=== PATIENT | male | born 1985 | race Caucasian/White ===

== ENCOUNTER 2020-02-26 11:45 | Emergency (ER) | payer BC, SELFPAY ==
--- NOTE | 2020-02-26 11:48 | ED.GENADUL_ITS ---
Discharge Plan Disposition Patient Disposition: HOME Condition: Stable Discharge Details Clinical Impression: Laceration Primary Care Provider: Wilberto Lobato ED Provider: Maria Alejandra Alves Home Meds and New Rx's Prescriptions: New cephalexin [Keflex] 500 mg capsule 500 mg PO QID Qty: 39 RF: 0 Discharge Instructions Instructions: Laceration (ED) Additional Instructions: Please return immediately to the emergency department if you develop any new or worsening symptoms, if your condition does not improve as expected, or if you become otherwise concerned. It is extremely important that you call soon as possible to make an appointment to be seen in follow-up for this visit by your primary care doctor. You will need to have your sutures removed in 10 days as we discussed. Referrals: Wilberto Lobato [Primary Care Provider] - Discharge Data Discharge Date/Time-TO BE ENTERED AT DEPARTURE: 02/26/20 14:05 Medical Decision Making Manuel Massey is a 34-year-old man without reported history of major medical problems who presented to the emergency department with laceration to the dorsal aspect of the right hand over the first MCP. On exam patient is well and nontoxic-appearing. Extensor function of the first digit is intact, there is no neurovascular compromise. 1.5 cm curvilinear superficial laceration over the right first MCP with small amount of black debris, patient thinks may be related to black rubber glove he was wearing at the time of the injury. Concern for contaminated laceration. Doubt bony injury. Plan for x-ray, irrigation repair. X-ray negative. Wound irrigated copiously under pressure, small amount of debridement was performed due to debris, and wound was repaired. Plan for prophylactic antibiotics given contamination. I had a lengthy discussion with Patient regarding return to emergency department precautions, home care, and importance of outpatient follow-up. Pt verbalizes understanding of the plan and is amenable. Patient discharged to home with clear plan for outpatient follow- up. All questions were answered. Disposition decision was made weighing the risks and benefits of hospitalization versus outpatient treatment, the risk for further decompensation, and the patient's wishes. Medical Records Medical records reviewed: Yes I reviewed the patient's medical records. Imaging Data Radiologic Study: Attestation: I personally reviewed and interpreted this imaging study as follows: Radiologist's impression: EXAM: XR HAND RT COMPLETE CLINICAL HISTORY: laceration over 1st MCP joint. TECHNIQUE: 2D digital imaging was performed. COMPARISON: No exams were available for comparison FINDINGS: BONES: No acute fracture is present. No bony destructive lesion is seen. JOINTS: No dislocation present. SOFT TISSUE: There is a skin defect at the lateral aspect of the 1st MCP joint consistent with the patient's laceration. No radiopaque foreign bodies are seen in the soft tissues. IMPRESSION: 1. No acute fracture, dislocation or radiopaque foreign body. 2. Soft tissue laceration lateral to the 1st MCP joint. HPI General Mode of arrival: ambulatory . Date/Time Provider Initiated Documentation: 02/26/20 11:47 . Limitations to Documentation: no limitations . Information obtained by: patient, RN notes reviewed and old records reviewed . HPI Narrative: Manuel Massey is a 34-year-old man without reported history of medical problems presenting to emergency department with laceration to hand. 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 He denies any other injury. He denies pain other than at the site of the cut. He denies weakness or numbness. Patient denies any other symptoms, states that he was previously in his usual state of health. Patient reports last tetanus was 2 years ago. Related Data Home Medications Medication Instructions Recorded Confirmed cephalexin [Keflex] 500 mg PO QID #39 cap 02/26/20 Previous Rx's Medication Instructions Recorded cephalexin [Keflex] 500 mg PO QID #39 cap 02/26/20 Allergies Allergy/AdvReac Type Severity Reaction Status Date / Time No Known Drug Allergies Allergy Unverified 02/26/20 11:55 Review of Systems Narrative: Constitutional: denies fevers Eyes: denies eye pain ENT: denies ear pain, dental pain, sore throat Cardiovascular: denies chest pain Respiratory: denies SOB, cough GI: denies abdominal pain, vomiting : denies flank pain MSK: denies back pain, neck pain, arthralgias Skin: Reports skin wound Neuro: denies headaches, numbness, weakness PFSH Social History Smoking/Tobacco Use Status: Current every day Tobacco Type: cigars Smoking risk assessment performed?: Yes Alcohol Intake: former Drug use: Never Substance use type: does not use Do you feel safe at home: Yes Do you feel safe in your relationship?: Yes Exam Narrative Exam Narrative: Constitutional: well and [id number], pleasant, conversing normally HENT: head atraumatic/normocephalic/normal inspection, mucous membranes moist Eyes: conjunctiva normal, sclera normal, pupils 3mm b/l Neck: no stridor, normal ROM, trachea midline Resp: normal work of breathing, speaking in full sentences Cardio: normal rate, normal rhythm, radial pulse intact Skin: warm, dry, normal color, no rash Neuro: alert, not altered, grossly non-focal, normal tone Ext: 1.5 cm curvilinear laceration dorsal aspect right hand over first MCP joint with small amount of black debris, distal sensation of the first digit intact (scar distal to laceration from prior wound, patient reports mild chronic numbness/tingling to distal right first digit that is unchanged since this injury), full flexion/extension intact, brisk cap refill, no other abnormality of the right hand Psych: normal mood, normal affect, normal behavior Procedures Laceration Laceration 1: Site: hand Side (If applicable): right Size (cm): 1.5 Description: linear and contaminated Depth: simple, single layer Local Anesthetic: Lidocaine 1% Amount of anesthesia used (mL): 4 Pre-repair: wound explored, irrigated extensively and deep structures intact Skin layer closed with: nylon Size (cm): 4-0 Number of sutures: 3 Technique: simple, interrupted
[2020-02-26 11:50] VITALS: BP 108/76; PULSE 87; RESP 18; TEMP 37.2; O2SAT 98
--- NOTE | 2020-02-26 12:11 | DI.RAD_ITS ---
EXAM: XR HAND RT COMPLETE CLINICAL HISTORY: laceration over 1st MCP joint. TECHNIQUE: 2D digital imaging was performed. COMPARISON: No exams were available for comparison FINDINGS: BONES: No acute fracture is present. No bony destructive lesion is seen. JOINTS: No dislocation present. SOFT TISSUE: There is a skin defect at the lateral aspect of the 1st MCP joint consistent with the pa tient's laceration. No radiopaque foreign bodies are seen in the soft tissues. IMPRESSION: 1. No acute fracture, dislocation or radiopaque foreign body. 2. Soft tissue laceration lateral to the 1st MCP joint. DATA REPOSITORY: RADIATION DOSE DELIVERED:
[2020-02-26] MEDS: Cephalexin 500 MG CAP PO (13:44)
== END 2020-02-26 14:05 | disposition home or self-care (01) ==
PROVIDERS: Emergency Provider Student in an Organized Health Care Education/Training Program; PCP Family Medicine
DX: S61.011A Laceration without foreign body of right thumb without damage to nail, initial encounter (principal); W31.1XXA Contact with metalworking machines, initial encounter
CPT/HCPCS: 12001; 73130

== ENCOUNTER 2020-03-08 13:50 | Emergency (ER) | payer BC, SELFPAY ==
[2020-03-08 13:55] VITALS: BP 126/73; PULSE 66; RESP 16; TEMP 36.3; O2SAT 98
--- NOTE | 2020-03-08 14:49 | NUR.NOTE ---
Nursing Note: Referral to hand specialist @ [facility] Dr. Moscoso, given to Care Management. Tegan Barroso
--- NOTE | 2020-03-08 15:01 | W.ED.GENAD ---
Discharge Plan Disposition Patient Disposition: HOME Condition: Stable Discharge Details Clinical Impression: Visit for suture removal, Injury of thumb, right Primary Care Provider: Wilberto Lobato ED Provider: Alan Decker Home Meds and New Rx's Prescriptions: No Action No Known Home Meds RF: 0 Discharge Instructions Additional Instructions: Sutures were removed without any difficulty. After evaluating you I am concerned of the potential for a extensor tendon injury. Your range of motion and her strength does not appear to be equal to your left thumb. I spoke with our local orthopedic team and they have recommended that you follow-up with a hand specialist in [facility]. The hand specialist is Dr. Tristan, his office number is [phone]. I recommend you contact his office on Tuesday for prompt outpatient reevaluation. I do recommend wearing the splint until you are reevaluated for protective measures. I have also placed you on our care management list to help expedite outpatient care through the hand specialist. Please watch for new or worsening symptoms and return to the ER for any concerns. Referrals: Shahid Tristan [ [facility] STAFF PHYSICIAN] - Discharge Data Discharge Date/Time-TO BE ENTERED AT DEPARTURE: 03/08/20 15:10 Medical Decision Making 34-year-old gentleman presents for suture removal. Wound appears well, no signs of infection. Sutures removed without difficulty. Given his decreased strength and range of motion, I am concerned of a tendon injury. I placed a call to Dr. Green, orthopedics. He states that the injury is over 10 days old, on his dominant hand, and the patient is likely best served being evaluated sometime next week by a hand specialist. He recommends Dr. Tristan. In the meantime I will place the patient in a AlumaFoam thumb splint. I was able to give him the information for the hand specialist, and place him on the care management list. Care management will help expedite outpatient care and I have recommended that the patient call hand specialist first thing Tuesday for prompt outpatient reevaluation. We discussed the importance of proper follow-up given my concern for potential tendon injury on his dominant thumb. Patient is agreeable to this plan and has no additional questions or concerns. Medical Records Medical records reviewed: Yes I reviewed the patient's medical records. HPI General Mode of arrival: ambulatory. Date/Time Provider Initiated Documentation: 03/08/20 14:04. Limitations to Documentation: no limitations. Information obtained by: patient. HPI Narrative: This is a 34-year-old gentleman, denies significant past medical history, presenting for suture removal. He is right-hand dominant. He was seen in the ER on 02-26-20, laceration repaired. He reports that he is otherwise doing well, denies fever, new numbness, tingling. Does have a previous injury of the thumb and does have some altered sensation. Denies any drainage, redness, discomfort. Sutures are still intact. He does question if there is a new weakness in that left thumb since his most recent injury. He did not notice this at first. Now he believes that he is unable to extend his thumb completely and feels as though it is more weak in general. Related Data Home Medications Medication Instructions Recorded Confirmed Unknown [No Known Home Meds] 03/08/20 03/08/20 Allergies Allergy/AdvReac Type Severity Reaction Status Date / Time No Known Drug Allergies Allergy Unverified 03/08/20 13:58 General Stated Complaint: SutureRem KIESHA: 5 Review of Systems Constitutional Constitutional: Denies fever(s) and Reports weakness Musculoskeletal Musculoskeletal: Denies arthralgias, Denies joint swelling, Reports numbness (Baseline), Denies stiffness and Reports tingling Integumentary/Breasts Skin/Breast: Denies erythema Neurologic Neurologic: Reports numbness, Reports tingling and Reports weakness [facility] Social History Smoking/Tobacco Use Status: Current every day Tobacco Type: cigars Smoking risk assessment performed?: Yes Alcohol Intake: former Drug use: Never Substance use type: does not use Do you feel safe at home: Yes Do you feel safe in your relationship?: Yes Exam Const General: cooperative, healthy appearing, comfortable and no acute distress Orientation: alert and awake [facility] Head: normal to inspection, normocephalic and atraumatic Eyes General: appearance normal, both eyes and all related structures Conjunctivae: conjunctivae normal Sclera: sclerae normal Neck Neck: normal visual inspection, trachea midline and supple Resp Effort & Inspection: normal respiratory effort and able to speak in complete sentences Cardio Rate: regular rate Rhythm: regular rhythm Skin General skin exam: no rashes or lesions noted Neuro General: patient alert, patient awake and moves all extremities Cognition: normal cognition Speech: speech normal Gait: normal gait Extrem Right upper extremity: normal capillary refill Other: Right hand examination, specifically right thumb. There is a well-healing laceration proximally 1.5 cm over the first MCP joint. 3 sutures are intact. There is no warmth, erythema, drainage, tenderness. In comparison to his left, his nondominant thumb, he does have only 4 out of 5 strength compared to 5 out of 5 strength with extension of the thumb. He is able to partially extend his thumb in both his MCP and PIP joint but he is not able to hyperextend these joints like he does on his nondominant hand. Normal capillary refill. He is able to feel me touching his thumb although reports that he does have his baseline altered sensation from previous injury. Psych Appearance: grossly normal Mental Status: mental status grossly normal Course Vital Signs Vital signs: Vital Signs Temperature 36.3 C L 03/08/20 13:55 Pulse 66 03/08/20 13:55 Respiratory Rate 16 03/08/20 13:55 Blood Pressure 126/73 03/08/20 13:55 Pulse Oximetry 98 03/08/20 13:55 Temperature 36.3 C L 03/08/20 13:55 Temperature Source Skin 03/08/20 13:55 Pulse 66 03/08/20 13:55 Respiratory Rate 16 03/08/20 13:55 Respiratory Effort Non-Labored 03/08/20 13:55 Blood Pressure 126/73 03/08/20 13:55 Blood Pressure Position Sitting 03/08/20 13:55 Pulse Oximetry 98 03/08/20 13:55 Oxygen Delivery Method Room Air 03/08/20 13:55 Oxygen Flow Rate 0 03/08/20 13:55 Pain Level 1 03/08/20 13:55
[2020-03-08 15:06] VITALS: BP 126/73; PULSE 66; RESP 16; TEMP 36.4; O2SAT 98
== END 2020-03-08 15:10 | disposition home or self-care (01) ==
PROVIDERS: Emergency Provider Physician Assistant; PCP Family Medicine
DX: S61.012D Laceration without foreign body of left thumb without damage to nail, subsequent encounter (principal); X58.XXXD Exposure to other specified factors, subsequent encounter

== ENCOUNTER 2021-08-17 11:14 | Emergency (ER) | payer BC, SELFPAY ==
[2021-08-17 11:16] VITALS: BP 123/83; PULSE 74; RESP 14; TEMP 37; O2SAT 97
--- NOTE | 2021-08-17 11:45 | W.ED.GENAD ---
Discharge Plan Disposition Patient Disposition: HOME Condition: Stable Discharge Details Clinical Impression: Foreign body (FB) in soft tissue Primary Care Provider: Wilberto Lobato ED Provider: Verito Vázquez Home Meds and New Rx's Prescriptions: New cephalexin 500 mg capsule 500 mg PO BID 3 Days Qty: 6 0RF Rx Instructions: Take 1 capsule twice daily for the next 3 days. Take with food. Discharge Instructions Instructions: Laceration (ED), Soft Tissue Foreign Body (ED) Additional Instructions: A small piece of metal was removed from the right medial knee. Please have sutures removed in the next 5 to 7 days. Return sooner for any signs of infection. Please take the antibiotics as directed. Keep clean and dry no soaking or swimming. Do not do any deep knee bend. Please take Tylenol or Ibuprofen with food every 4-6 hours as needed for pain and swelling. You may have the sutures removed here or urgent care. Referrals: Wilberto Lobato [Primary Care Provider] - Return if symptoms worsen Discharge Data Discharge Date/Time-TO BE ENTERED AT DEPARTURE: 08/17/21 13:51 Medical Decision Making 36-year-old male presents to the ER with chief complaint of possible foreign body to his right inner knee. He reports approximately an hour ago he was hammering a nail when a piece broke off and impaled into his right inner knee. This time x-ray of right knee ordered to rule out metal foreign body. Tetanus vaccination. I did discuss risks of inability to retrieve foreign body, infection,and benefits and a timeout was performed prior to retrieval of foreign body to the soft tissues. Patient verbalized understanding and is in agreement with the procedure. Area was cleaned using sterile aseptic technique with Betadine. The skin was anesthetized with 1% lidocaine with epinephrine. A Small incision was made with a 15 blade just over the foreign body. The foreign body was retrieved with hemostat, ultrasound guidance was also at bedside for assistance with retrieval. Patient tolerated with little difficulty please see procedure note. Small piece of metal foreign body was retrieved. The incision was repaired with 3 simple interrupted sutures, four-point 0 Ethilon. I did discuss suture removal and home care with patient who verbalized understanding. Circulation sensation and movement was intact postprocedure. Dressing was applied by staffing recruiter. This text was generated using [employer] system, please disregard any oddities of phrase or misspellings. Imaging Data Radiologic Study: Imaging: X-Ray Radiologist's impression: FINDINGS: BONES: No acute fracture is present. No bony destructive lesion is seen. JOINTS: The knee is normally aligned. No joint effusion is seen. SOFT TISSUE: Metallic fragment in the soft tissues of the posteromedial knee at the level of the medial femoral condyle .? Venous varicosities are noted. IMPRESSION: Metallic foreign body in the posteromedial soft tissues of the right knee. Lab Data Labs: FINDINGS: BONES: No acute fracture is present. No bony destructive lesion is seen. JOINTS: The knee is normally aligned. No joint effusion is seen. SOFT TISSUE: Metallic fragment in the soft tissues of the posteromedial knee at the level of the medial femoral condyle .? Venous varicosities are noted. IMPRESSION: Metallic foreign body in the posteromedial soft tissues of the right knee. HPI General Mode of arrival: ambulatory. Date/Time Provider Initiated Documentation: 08/17/21 11:40. Limitations to Documentation: no limitations. Information obtained by: patient, RN notes reviewed and old records reviewed. HPI Narrative: 36-year-old male presents to the ER with chief complaint of possible foreign body to his right inner knee. He reports approximately an hour ago he was hammering a nail when a piece broke off and impaled into his right inner knee. He denies any drugs or alcohol. Alert and oriented no other complaints or associated symptoms. He reports some numbness and tingling distally, CMS is intact to his distal lower extremity. He is unsure of his last tetanus vaccination. Related Data Home Medications Medication Instructions Recorded Confirmed cephalexin 500 mg capsule 500 mg PO BID 3 days #6 caps 08/17/21 Previous Rx's Medication Instructions Recorded cephalexin 500 mg capsule 500 mg PO BID 3 days #6 caps 08/17/21 Allergies Allergy/AdvReac Type Severity Reaction Status Date / Time No Known Drug Allergies Allergy Unverified 08/17/21 11:21 General Stated Complaint: Laceration KIESHA: 3 Review of Systems All systems reviewed & are unremarkable except as noted in HPI and below Musculoskeletal Musculoskeletal: Reports as per HPI and Reports numbness Integumentary/Breasts Skin/Breast: Reports as per HPI and Reports wounds (Right medial posterior knee) Neurologic Neurologic: Reports numbness PFSH All Active Problems (Updated 08/17/21 @ 13:26 by Verito Vázquez) Foreign body (FB) in soft tissue (Acute) Social History Smoking/Tobacco Use Status: Current every day Tobacco Type: cigars Smoking risk assessment performed?: Yes Alcohol Intake: former Drug use: Never Substance use type: does not use Do you feel safe at home: Yes Do you feel safe in your relationship?: Yes Exam Extrem General: normal to inspection Right upper extremity: normal to inspection Left upper extremity: normal to inspection Right lower extremity: normal capillary refill and knee Details: penetrating wound (See diagram) knee medial Details: a single wound, distal motor nerve function intact, distal sensation intact and distal tendon function intact; no crepitus Knee images: 1. Small puncture wound approximately 0.5 cm, small ooze noted, no active bleeding at this time. Course Vital Signs Vital signs: Vital Signs Temperature 37 C 08/17/21 11:16 Pulse 74 08/17/21 11:16 Respiratory Rate 14 08/17/21 11:16 Blood Pressure 123/83 08/17/21 11:16 Pulse Oximetry 97 08/17/21 11:16 Temperature 37 C 08/17/21 11:16 Temperature Source Skin 08/17/21 11:16 Pulse 74 08/17/21 11:16 Respiratory Rate 14 08/17/21 11:16 Blood Pressure 123/83 08/17/21 11:16 Blood Pressure Position Sitting 08/17/21 11:16 Pulse Oximetry 97 08/17/21 11:16 Oxygen Delivery Method Room Air 08/17/21 11:16 Oxygen Flow Rate 0 08/17/21 11:16 Pain Level 1 08/17/21 11:26 Procedures Foreign Body Removal Time Out Performed: yes (Discussed risks and benefits and procedure with patient who verbalizes understanding and is in agreement.) Site: right Description of foreign body: other (Metal piece of hammer) Sedation/Analgesia: none Technique: removal with forceps (A small approximate 0.5 cm piece of metal was removed.), incision made to facilitate removal (Incision repaired with 3 simple interrupted sutures.) and bedside ultrasound guidance Confirmed by:: direct visualization, radiograph and palpation Complications: none Post-procedure exam: awake, alert and normal HR Neurovascular: normal distal pulse, normal capillary fill, distal light touch sensation intact, distal motor function normal and no signs of compartment syndrome
--- NOTE | 2021-08-17 12:08 | DI.RAD_ITS ---
Exam(s) XR KNEE RT 3V AP,LAT,JOSEFA EXAM: XR KNEE RT 3V AP,LAT,JOSEFA CLINICAL HISTORY: R/O Foreign Body, metal. TECHNIQUE: 2D digital imaging was performed. Three views. COMPARISON: No exams were available for comparison FINDINGS: BONES: No acute fracture is present. No bony destructive lesion is seen. JOINTS: The knee is normally aligned. No joint effusion is seen. SOFT TISSUE: Metallic fragment in the soft tissues of the posteromedial knee at the level of the medi al femoral condyle . Venous varicosities are noted. IMPRESSION: Metallic foreign body in the posteromedial soft tissues of the right knee. DATA REPOSITORY: RADIATION DOSE DELIVERED:
[2021-08-17] MEDS: Cephalexin 500 MG CAP, 2 CAPS/BTL PO (13:52)
[2021-08-17] MEDS: Cephalexin 500 MG CAP PO (13:52)
== END 2021-08-17 13:51 | disposition home or self-care (01) ==
PROVIDERS: Emergency Provider Registered Nurse Emergency; PCP Family Medicine
DX: S80.251A Superficial foreign body, right knee, initial encounter (principal); W45.8XXA Other foreign body or object entering through skin, initial encounter
CPT/HCPCS: 10120; 73562; 90471; 99284; 99283

== ENCOUNTER 2021-08-24 09:57 | Emergency (ER) | payer BC, SELFPAY ==
[2021-08-24 09:59] VITALS: BP 130/79; PULSE 76; RESP 16; TEMP 35.5; O2SAT 96
--- NOTE | 2021-08-24 10:28 | ED.GENADUL_ITS ---
Discharge Plan Disposition Patient Disposition: HOME Condition: Stable Discharge Details Clinical Impression: Visit for suture removal Primary Care Provider: Wilberto Lobato ED Provider: Sarah Mcgovern Home Meds and New Rx's Prescriptions: No Action No Known Home Meds Discharge Instructions Additional Instructions: Follow-up as needed Return with redness, fever, worsening pain Discharge Data Discharge Date/Time-TO BE ENTERED AT DEPARTURE: 08/24/21 10:53 Medical Decision Making 3 sutures removed by me without incident Reviewed patient procedure note and previous discharge summary Discharged home, appears well Medical Records Medical records reviewed: Yes I reviewed the patient's medical records. HPI General Date/Time Provider Initiated Documentation: 08/24/21 10:18 . HPI Narrative: This 36-year-old male presents for suture removal right inner thigh where he had a metal splinter removed. He states that approximately 7 days ago. He denies any new pain, sensation change, redness, or drainage from the site and is overall feeling well Related Data Home Medications Medication Instructions Recorded Confirmed Unknown [No Known Home Meds] 08/24/21 08/24/21 Allergies Allergy/AdvReac Type Severity Reaction Status Date / Time No Known Drug Allergies Allergy Unverified 08/24/21 10:02 General Stated Complaint: SutureRem KIESHA: 5 Review of Systems Narrative: Review of systems obtained x3 and negative aside from medication HPI PFSH All Active Problems (Updated 08/24/21 @ 10:31 by SAUL Zhang) Foreign body (FB) in soft tissue (Acute) Visit for suture removal (Acute) Social History Smoking/Tobacco Use Status: Current every day Tobacco Type: cigars Smoking risk assessment performed?: Yes Alcohol Intake: former Drug use: Never Substance use type: does not use Do you feel safe at home: Yes Do you feel safe in your relationship?: Yes Exam Const General: cooperative, comfortable and no acute distress Extrem Other: Right inner thigh with well-healing and approximated laceration without surrounding erythema or wound dehiscence Course Vital Signs Vital signs: Vital Signs Temperature 35.5 C L 08/24/21 09:59 Pulse 76 08/24/21 09:59 Respiratory Rate 16 08/24/21 09:59 Blood Pressure 130/79 08/24/21 09:59 Pulse Oximetry 96 08/24/21 09:59 Temperature 35.5 C L 08/24/21 09:59 Temperature Source Temporal Artery Scan 08/24/21 09:59 Pulse 76 08/24/21 09:59 Respiratory Rate 16 08/24/21 09:59 Respiratory Effort Non-Labored 08/24/21 10:02 Blood Pressure 130/79 08/24/21 09:59 Blood Pressure Position Sitting 08/24/21 09:59 Pulse Oximetry 96 08/24/21 09:59 Oxygen Delivery Method Room Air 08/24/21 09:59 Oxygen Flow Rate 0 08/24/21 09:59
== END 2021-08-24 10:53 | disposition home or self-care (01) ==
PROVIDERS: Emergency Provider Physician Assistant; PCP Family Medicine
DX: S71.12 Laceration with foreign body of thigh (principal); W45.8XXD Other foreign body or object entering through skin, subsequent encounter; Z48.02 Encounter for removal of sutures

== ENCOUNTER 2022-05-20 18:27 | Outpatient (REF) | payer BC, SELFPAY ==
[2022-05-20 20:28] LABS: Abs Immature Grans 0.02 10^3/uL (0.0-0.06); Absolute Basophil Count 0.09 10^3/uL (0.0-0.2); Absolute Eosinophil Count 0.39 10^3/uL (0.0-0.7); Absolute Lymphocyte Count 2.33 10^3/uL (1.2-3.4); Absolute Monocyte Count 0.56 10^3/uL (0.1-0.8); Absolute Neutrophil Count 4.04 10^3/uL (1.2-6.7); Basophils % 1.2; Eosinophils % 5.2; HCT 45.7 % (40.0-50.0); Immature Grans % 0.3; Lymphocytes % 31.4; MCH 30.8 pg (27.0-33.0); MCV 88 fL (80-95); MPV 10.9 fL (8.0-11.0); Monocytes % 7.5; Neutrophils % 54.4; Platelet Count 274 10^3/uL (130-400); RDW 12.2 % (11.8-14.1); RDW-SD 39.1 fL; WBC 7.43 10^3/uL (4.4-10.8)
[2022-05-20 20:43] LABS: ALT 42 U/L (16-63); AST 34 U/L (15-37); Albumin 4.3 g/dL (3.4-5.0); Alkaline Phosphatase 184 U/L (46-116); Anion Gap 8.5 mmol/L (3-11); BUN 12 mg/dL (7-18); Bilirubin, Total 0.3 mg/dL (0.2-1.0); CO2 27.5 mmol/L (21.0-32.0); CREATININE 1.1 mg/dL (0.70-1.30); Calcium 9.1 mg/dL (8.5-10.1); Chloride 105 mmol/L (98-107); Estimated GFR 87.57 (mL/min/1.73m2); Glucose 87 mg/dL (74-106); Sodium 141 mmol/L (136-145); Total Protein 8.2 g/dL (6.4-8.2)
== END 2022-05-20 18:28 | disposition home or self-care (01) ==
LOC: NCHCN 18:27
PROVIDERS: PCP Family Medicine; Visit Provider Family Medicine
DX: R06.09 Other forms of dyspnea (principal)
CPT/HCPCS: 80053; 85025

== ENCOUNTER 2022-05-21 09:57 | Outpatient (CLI) | payer BC, SELFPAY ==
--- NOTE | 2022-05-21 | DI.RAD_ITS ---
Exam(s) XR CHEST 2V PA LATERAL EXAM: XR CHEST 2V PA LATERAL CLINICAL HISTORY: DYSPNEA R06.00 TECHNIQUE: 2D digital imaging was performed of the chest. Two images were obtained. PA and lateral views were obtained. COMPARISON: No exams were available for comparison FINDINGS: MEDIASTINUM: Normal. HEART: Normal. PULMONARY VASCULATURE: Normal. LUNGS: Clear. PLEURAL SPACE: No pleural effusion or pneumothorax. BONE:Within normal limits for the patient's age. OTHER FINDINGS:Normal. IMPRESSION: No acute pulmonary findings. DATA REPOSITORY: RADIATION DOSE DELIVERED:
== END 2022-05-21 10:17 ==
LOC: DI 09:57
PROVIDERS: PCP Family Medicine; Visit Provider Family Medicine
DX: R06.00 Dyspnea, unspecified (principal)
CPT/HCPCS: 71046

== ENCOUNTER 2022-05-25 11:21 | Outpatient (CLI) | payer BC, SELFPAY ==
[2022-05-25] MEDS: Albuterol HFA 18 GM 200 PUFF INH IH (14:39)
[2022-05-25] MEDS: Inhaler, Assist Device 1 EACH MC (14:39)
--- NOTE | 2022-06-02 13:22 | W.PFT ---
Date of service: 05/25/22 Time of Service: 13:04 Pulmonary Function Test Result Requesting Provider Awais Dawkins Indications: Dyspnea Interpretation Spirometry: No airflow limitation. No bronchodilator response. Lung Volumes: Normal lung volumes Diffusion Capacity: Normal diffusion Airway Pressure: Normal airways resistance Impression Normal pulmonary function testing Clinical Correlation therefore is recommended.
== END 2022-05-25 11:22 | disposition home or self-care (01) ==
PROVIDERS: PCP Family Medicine; Visit Provider Family Medicine
DX: R06.00 Dyspnea, unspecified (principal)
CPT/HCPCS: 94060; 94726; 94729

== ENCOUNTER 2022-05-28 18:04 | Emergency (ER) | payer BC, SELFPAY ==
[2022-05-28 18:08] VITALS: BP 130/80; PULSE 70; RESP 16; TEMP 36.4; O2SAT 99
--- NOTE | 2022-05-28 18:22 | W.ED.GENAD ---
Discharge Plan Disposition Patient Disposition: Home Condition: Stable Discharge Details Clinical Impression: Pulmonary air trapping Primary Care Provider: Awais Dawkins ED Provider: Charlene Gooden Home Meds and New Rx's Prescriptions: New Inhaler, Assist Devices [Pocket Chamber] 1 ea miscellaneous DIRECTED Qty: 1 0RF albuterol sulfate 90 mcg/actuation HFA aerosol inhaler 2 puff inhalation Q4H PRNQty: 8.5 0RF Discharge Instructions Instructions: Reactive Airways Disease (ED) Referrals: Awais Dawkins MD [Primary Care Provider] - Lexus Lewis MD [[facility] STAFF PHYSICIAN] - Discharge Data Discharge Date/Time-TO BE ENTERED AT DEPARTURE: 05/28/22 21:41 <Yakov Alves MD - Last Filed: 06/06/22 22:16> Note: I did not evaluate this patient or participate in the care of this patient. The treating provider, DERRICK Gooden, did not request consultation or my involvement in care. HPI <Charlene Gooden NP - Last Filed: 06/01/22 17:58> General Mode of arrival: ambulatory. Date/Time Provider Initiated Documentation: 05/28/22 18:12. Limitations to Documentation: no limitations. Information obtained by: patient. HPI Narrative: This is a 37-year-old male patient with no significant past medical history who presents to the emergency department after ongoing shortness of breath has had for over a month. He has had PFTs completed seen his primary care provider reporting he did have some improvement after taking the albuterol during his PFT even though it is documented that he reported none at the time. He has had no fever Related Data Home Medications Medication Instructions Recorded Confirmed Inhaler, Assist Devices [Pocket 1 ea miscellaneous DIRECTED #1 05/28/22 Chamber] ea albuterol sulfate 90 mcg/actuation 2 puff inhalation Q4H PRN #8.5 05/28/22 aerosol inhaler grams Previous Rx's Medication Instructions Recorded Inhaler, Assist Devices [Pocket 1 ea miscellaneous DIRECTED #1 05/28/22 Chamber] ea albuterol sulfate 90 mcg/actuation 2 puff inhalation Q4H PRN #8.5 05/28/22 aerosol inhaler grams Allergies Allergy/AdvReac Type Severity Reaction Status Date / Time No Known Drug Allergies Allergy Unverified 08/24/21 10:02 General Stated Complaint: SOB KIESHA: 3 Review of Systems <Charlene Godoen NP - Last Filed: 06/01/22 17:58> All systems reviewed & are unremarkable except as noted in HPI and below PFSH <Charlene Gooden NP - Last Filed: 06/01/22 17:58> All Active Problems (Updated 05/28/22 @ 21:25 by Charlene Gooden NP) Pulmonary air trapping (Acute) Social History Smoking/Tobacco Use Status: Current-Occasional Tobacco Type: cigars Smoking risk assessment performed?: Yes Alcohol Intake: former Drug use: Never Substance use type: does not use Do you feel safe at home: Yes Do you feel safe in your relationship?: Yes Exam <Charlene Gooden NP - Last Filed: 06/01/22 17:58> Const General: cooperative, comfortable and no acute distress Orientation: alert, awake and oriented x3 HENMT Head: normal to inspection, normocephalic and atraumatic Eyes General: appearance normal, both eyes and all related structures Conjunctivae: conjunctivae normal Sclera: sclerae normal Neck Neck: normal visual inspection, trachea midline and supple Resp Effort & Inspection: normal respiratory effort and able to speak in complete sentences Auscultation: clear to auscultation bilaterally, no rales, no rhonchi and no wheezes Cardio Rate: regular rate Rhythm: regular rhythm Skin General skin exam: no rashes or lesions noted Neuro General: patient alert, patient awake and moves all extremities Cognition: normal cognition Speech: speech normal Gait: normal gait Extrem Other: Right hand examination, specifically right thumb. There is a well-healing laceration proximally 1.5 cm over the first MCP joint. 3 sutures are intact. There is no warmth, erythema, drainage, tenderness. In comparison to his left, his nondominant thumb, he does have only 4 out of 5 strength compared to 5 out of 5 strength with extension of the thumb. He is able to partially extend his thumb in both his MCP and PIP joint but he is not able to hyperextend these joints like he does on his nondominant hand. Normal capillary refill. He is able to feel me touching his thumb although reports that he does have his baseline altered sensation from previous injury. Psych Appearance: grossly normal Mental Status: mental status grossly normal Course <Charlene Gooden [employer]MENT SUPERVISOR - Last Filed: 06/01/22 17:58> Vital Signs Vital signs: Vital Signs Temperature 36.4 C 05/28/22 18:08 Pulse 70 05/28/22 18:08 Respiratory Rate 16 05/28/22 18:08 Blood Pressure 130/80 05/28/22 18:08 Pulse Oximetry 99 05/28/22 18:08 Temperature 36.4 C 05/28/22 18:08 Temperature Source Oral 05/28/22 18:08 Pulse 70 05/28/22 18:08 Respiratory Rate 16 05/28/22 18:08 Blood Pressure 130/80 05/28/22 18:08 Pulse Oximetry 99 05/28/22 18:08 Oxygen Delivery Method Room Air 05/28/22 18:08 Oxygen Flow Rate 0 05/28/22 18:08 Pain Level 0 05/28/22 18:08
[2022-05-28 19:38] LABS: NT-proBNP 19 pg/mL (<300); TSH (W/Ref FT4) 2.32 uIU/mL (0.36-3.74)
--- NOTE | 2022-05-28 19:45 | DI.CT_ITS ---
Exam(s) CT CHEST PE CTA EXAM: CT CHEST PE CTA CLINICAL HISTORY: shortness of breath. TECHNIQUE: Imaging Protocol: Axial CT angiography was performed with multi-slice acquisition and mu lti-planar and/or 3D reconstructions. CONTRAST MATERIAL: Intravenous: Omnipaque 350 contrast volume:100 mL COMPARISON: CR XR CHEST 2V PA LATERAL from 05/21/2022 FINDINGS: Tracheobronchial tree: Patent where visualized. Pulmonary parenchyma: No consolidation or dominant measurable mass. No architectural distortion. Ther e is poor inspiration. Pulmonary Arteries: No evidence of filling defect to suggest pulmonary emboli. Mediastinum and Sushma: No dominant adenopathy or fluid collection. The esophagus is unremarkable. Visualized thyroid gland: Unremarkable. Pleura: No effusion or pneumothorax. Heart: The heart is not dilated. No coronary artery calcifications are seen. No pericardial effusion. There is a normal RV to LV ratio of less than 1. Aorta: Thoracic aorta non-dilated. No evidence of dissection. Upper abdomen: Unremarkable. Soft tissues: Unremarkable. Bones: Within normal limits for the patient's age. IMPRESSION: No evidence of pulmonary embolism, thoracic aortic dissection or aneurysm. RADIATION DOSE DELIVERED: 367.37mGy.cm Total DLP DATA REPOSITORY: All CT scans at this facility are submitted to the National Radiology Data Registry (NRDR) Dose Index Registry (DIR) with the [employer] (ACR). RADIATION OPTIMIZATION: All CT scans at this facility use at least one of these dose optimization te chniques: automated exposure control; mA and/or kV adjustment per patient size (includes targeted exa ms where dose is matched to clinical indication); or iterative reconstruction.
[2022-05-28 19:48] LABS: D-Dimer 248 ng/mlFEU (<500)
[2022-05-28] MEDS: Omnipaque 350 MG/ML 100 ML BTL IJ (20:37)
[2022-05-28] MEDS: Normal Saline - Diluent 50 ML VIAL IJ (20:38)
[2022-05-28] MEDS: Normal Saline 1,000 ML 1000 ML IV (20:43)
--- NOTE | 2022-05-28 21:10 | DI.VRAD_ITS ---
PROCEDURE INFORMATION: Exam: CTA Chest With Contrast Exam date and time: 05/28/2022 8:38 PM Age: 37 years old Clinical indication: Shortness of breath TECHNIQUE: Imaging protocol: Computed tomographic angiography of the chest with contrast. 3D rendering (Not supervised by radiologist): MIP and/or 3D reconstructed images were created by the technologist. Radiation optimization: All CT scans at this facility use at least one of these dose optimization techniques: automated exposure control; mA and/or kV adjustment per patient size (includes targeted exams where dose is matched to clinical indication); or iterative reconstruction. Contrast material: OMNI 350; Contrast volume: 100 ml; Contrast route: INTRAVENOUS (IV); COMPARISON: CR XR CHEST 2V PA LATERAL 05/21/2022 1:44 PM FINDINGS: Pulmonary arteries: The pulmonary arteries are normal in caliber. No evidence of acute pulmonary embolism. Aorta: The aorta is normal without evidence of aneurysmal dilatation, dissection or occlusive disease. Lungs: There is heterogeneous attenuation of the pulmonary parenchyma, consistent with air trapping from underlying small airways disease. There is no evidence of focal pulmonary consolidation. No evidence of pulmonary parenchymal inflammatory changes. There is no evidence of pulmonary masses. Pleural spaces: There is no evidence of pneumothorax. There are no pleural effusions present. Heart: The cardiac structures are normal. The right ventricular to left ventricular ratio is normal measuring approximately 0.9. Lymph nodes: There is no evidence of lymphadenopathy. Bones/joints: The spine, sternum, ribs, and pectoral girdles show no evidence of acute abnormality. Soft tissues: There are no soft tissue masses or fluid collections. The upper abdominal viscera are unremarkable. Other findings: The mediastinal structures are normal. IMPRESSION: 1. There is heterogeneous attenuation of the pulmonary parenchyma, consistent with air trapping from underlying small airways disease. 2. No evidence of acute pulmonary embolism. Dictated and Authenticated by: Shaquille Sage MD. Ordering:YULY Chang MD
[2022-05-28 21:14] LABS: COVID-19 PCR Negative (Negative); Influenza A PCR Negative (Negative); Influenza B PCR Negative (Negative); RSV PCR Negative (Negative)
[2022-05-28 21:15] LABS: Source Nasopharynx
[2022-05-28 21:26] VITALS: BP 118/73; PULSE 68; RESP 16; O2SAT 97
[2022-05-28] MEDS: Albuterol HFA 8 GM 60 PUFF INH IH (21:27)
== END 2022-05-28 21:41 | disposition home or self-care (01) ==
PROVIDERS: Emergency Provider Nurse Practitioner Acute Care; PCP Family Medicine
DX: J98.8 Other specified respiratory disorders (principal); Z20.822 Contact with and (suspected) exposure to COVID-19; R06.02 Shortness of breath; F17.290 Nicotine dependence, other tobacco product, uncomplicated
CPT/HCPCS: 71275; 87637; 96360; 99285; 83880; 84443; 85379; 99284; J3490

== ENCOUNTER 2022-06-29 02:54 | Outpatient (CLI) | payer BC, SELFPAY ==
[2022-06-29] MEDS: Methacholine 100 MG VIAL IH (17:21)
[2022-06-29] MEDS: Inhaler, Assist Device 1 EACH MC (17:21)
[2022-06-29] MEDS: Albuterol HFA 18 GM 200 PUFF INH IH (17:21)
--- NOTE | 2022-07-01 15:58 | W.PFT ---
Date of service: 06/29/22 Time of Service: 15:02 Pulmonary Function Test Result Indications: Dyspnea Interpretation Spirometry: No airflow limitation at baseline. There was a 26% decrease in FEV1% with administration of 8mg/mL methacholine Impression Positive methacholine challenge test. Clinical Correlation therefore is recommended.
== END 2022-06-29 02:55 | disposition home or self-care (01) ==
LOC: RT 02:54
PROVIDERS: PCP Family Medicine; Visit Provider Physician Assistant Surgical
DX: R06.00 Dyspnea, unspecified (principal)
CPT/HCPCS: 94060; 94070; J7674

== ENCOUNTER 2024-08-08 10:03 | Outpatient (REF) | payer OTHER, SELFPAY ==
[2024-08-08 15:12] LABS: Calculated LDL 118 mg/dL (<100); Cholesterol 192 mg/dL (<200); HDL Cholesterol 54 mg/dL (>or=40); Triglyceride 102 mg/dL (<150)
[2024-08-09 10:15] LABS: Hepatitis C Ab w Rflx HCV PCR Negative (Negative)
[2024-08-09 10:26] LABS: HIV-1/2 Ag & Ab Screen Negative (Negative)
== END 2024-08-08 10:04 | disposition home or self-care (01) ==
LOC: NCHCN 10:03
PROVIDERS: PCP Family Medicine; Visit Provider Family Medicine
DX: Z00.00 Encounter for general adult medical examination without abnormal findings (principal)
CPT/HCPCS: 80061; 86803; 87389

== ENCOUNTER 2024-12-11 19:56 | Emergency (ER) | payer OTHER, SELFPAY ==
[2024-12-11 20:00] VITALS: BP 124/85; PULSE 59; RESP 18; TEMP 36.6; O2SAT 98
[2024-12-11 20:39] VITALS: BP 124/85; PULSE 59; RESP 18; TEMP 36.6; O2SAT 98
--- NOTE | 2024-12-11 21:15 | ED.GENADUL_ITS ---
Discharge Plan Disposition Patient Disposition: Home Condition: Stable Discharge Details Clinical Impression: Pain, dental Primary Care Provider: Awais Dawkins ED Provider: Francis Conway Home Meds and New Rx's Prescriptions: New amoxicillin-pot clavulanate 875-125 mg tablet 1 tab PO BID 7 Days Qty: 14 0RF Continued albuterol sulfate 90 mcg/actuation HFA aerosol inhaler 2 puff inhalation QID PRN (Reason: shortness of breath or wheezing) Qty: 8.5 6RF citalopram 10 mg tablet 10 mg PO DAILY triamcinolone acetonide 0.1 % cream 1 applic topical BID PRN Inhaler, Assist Devices [Pocket Chamber] 1 ea miscellaneous DIRECTED Qty: 1 0RF albuterol sulfate 90 mcg/actuation HFA aerosol inhaler 2 puff inhalation Q4H PRNQty: 8.5 0RF No Action budesonide-formoterol [Symbicort] 160-4.5 mcg/actuation HFA aerosol inhaler 2 puff inhalation BID Qty: 10.2 12RF Discharge Instructions Instructions: Amoxicillin and Clavulanate, Oxycodone, Dental Pain ED Additional Instructions: You were seen in the emergency department for your dental pain after getting a filling, there is no visible abscess it is possible you have an early dental infection Ragona start you on Augmentin, please perform salt water gargles with warm salt water 3 times per day, purchase [id number] Anbesol benzocaine gel to placed on area of pain you can also look up homeopathic remedies like cloves for dental pain. Please use therapeutic dosing of Tylenol (acetamenophen) & Advil (ibuprofen) in an alternating fashion as follows: Take 1000mg of Tylenol every 6 hours without missing doses- that is 4 times per day. Prison in between the Tylenol dosings, take 400-600mg of Advil also on a 6 hour schedule, that is also 4 times per day.-Or substitute Aleve twice a day you can take 440 twice per day for up to 1 week without much problem The daily maximum dosing of Tylenol is 4000mg, and the daily maximum dosing of Advil is 2400mg. This is safe to do for weeks. Please note that some common cold medications & prescription pain medications may contain acetamenophen and you need to read OTC drug labels and factor that in to maximum daily dosings. Take the single oxycodone we have provided to before bed tonight to help you sleep, use viscous lidocaine to help numb pain as well Referrals: Awais Dawkins MD [Primary Care Provider, Medicine] Discharge Data Discharge Date/Time-TO BE ENTERED AT DEPARTURE: 12/11/24 21:41 HPI General Date/Time Provider Initiated Documentation: 12/11/24 21:03 . HPI Narrative: 39 year-old male presents to ED today by POV/ambulating with a chief complaint of dental pain after getting a filling today, L 2nd molar- throbbing in gums, no radiation to trismus, vocal changes, fever, inability to swallow. Severity is described as moderate. Palliating factors include nothing specific beyond OTC analgesics. Provoking factors include nothing specific. Patient not anticoagulated. Related Data Home Medications ?Medication ?Instructions ?Recorded ?Confirmed Inhaler, Assist Devices [Pocket 1 ea miscellaneous DIRECTED #1 05/28/22 06/13/24 Chamber] ea albuterol sulfate 90 mcg/actuation 2 puff inhalation Q 4H PRN #8.5 05/28/22 06/13/24 aerosol inhaler grams triamcinolone acetonide 0.1 % 1 applic topical BID PRN 06/08/22 06/13/24 topical cream citalopram 10 mg tablet 10 mg PO DAILY 12/06/2311/14 albuterol sulfate 90 mcg/actuation 2 puff inhalation Q ID PRN 06/13/24 06/13/24 aerosol inhaler shortness of breath or wheez ing #8.5 grams amoxicillin 875 mg-potassium 1 tab PO BID 7 days #14 t abs 12/11/24 clavulanate 125 mg tablet budesonide-formoterol HFA 160 2 puff inhalation BID #1 0.2 grams 12/13/24 mcg-4.5 mcg/actuation aerosol inhaler (Symbicort) Previous Rx's ?Medication ?Instructions ?Recorded Inhaler, Assist Devices [Pocket 1 ea miscellaneous DIRECTED #1 05/28/22 Chamber] ea albuterol sulfate 90 mcg/actuation 2 puff inhalation Q 4H PRN #8.5 05/28/22 aerosol inhaler grams albuterol sulfate 90 mcg/actuation 2 puff inhalation Q ID PRN 06/13/24 aerosol inhaler shortness of breath or wheez ing #8.5 grams amoxicillin 875 mg-potassium 1 tab PO BID 7 days #14 t abs 12/11/24 clavulanate 125 mg tablet budesonide-formoterol HFA 160 2 puff inhalation BID #1 0.2 grams 12/13/24 mcg-4.5 mcg/actuation aerosol inhaler (Symbicort) Allergies Allergy/AdvReac Type Severity Reaction Status Date / Time No Known Drug Allergies Allergy Other (See Unverified 12/11/24 20:03 Comment) General Stated Complaint: DentalOral KIESHA: 3 Review of Systems All systems reviewed & are unremarkable except as noted in HPI and below Exam Narrative Exam Narrative: GENERAL APPEARANCE: Well-nourished, non-toxic, awake and alert, atraumatic, no acute distress. SKIN: Warm, pink, dry, intact, without rashes/lesions/ulcerations. HEAD: Normocephalic, atraumatic, normal hair distribution for gender/age. EYES: Normal conjunctiva, no exudates on lids/lashes. ENT: Nares patent, no circumoral cyanosis, no facial swelling, no visible gingival abscess, uvula midline, no trismus, no vocal changes NECK: Supple, trachea midline, painless cervical ROM. LUNGS/CHEST: Non-labored respirations, normal A/P diameter, symmetrical expansion, no chest wall deformity HEART (CV/PV): No peripheral edema, no JVD. ABDOMEN: Soft, non-distended, no guarding. MSK: Normal ROM, no swelling/deformity to bilateral UEs or LEs, moving all extremities without weakness, no cyanosis, spine midline without tenderness, normal curvature. NEURO: Mental Status AAOx4 - alert to person, place, time, events No facial droop, no forehead involvement. Motor: No focal weakness Sensory: sensation intact to light touch globally. Gait normal: patient ambulated without ataxia into ED room. PSYCH: euthymic, cooperative, pleasant, appropriate speech Course Vital Signs Vital signs: Vital Signs Temperature 36.6 C 12/11/24 20:00 Pulse 59 L 12/11/24 20:00 Respiratory Rate 18 12/11/24 20:00 Blood Pressure 124/85 12/11/24 20:00 Pulse Oximetry 98 12/11/24 20:00 Temperature 36.6 C 12/11/24 20:39 Pulse 59 L 12/11/24 20:39 Respiratory Rate 18 12/11/24 20:39 Blood Pressure 124/85 12/11/24 20:39 Pulse Oximetry 98 12/11/24 20:39 Oxygen Delivery Method Room Air 12/11/24 20:39 Oxygen Flow Rate 0 12/11/24 20:39 Pain Level 8 12/11/24 20:39 Medical Decision Making This dictation utilizes [id number] dictation software and may contain unedited grammatical errors. 39 year-old male presents to ED today by POV/ambulating with a chief complaint of dental pain after getting a filling today, L 2nd molar- throbbing in gums, no radiation to trismus, vocal changes, fever, inability to swallow. Severity is described as moderate. Palliating factors include nothing specific beyond OTC analgesics. Provoking factors include nothing specific. Patients' medical history: Noncontributory. Family and social history: Noncontributory. Pertinent exam findings / vital signs include no visible gingival abscess, no trismus, no gingival swelling, no vocal changes. Differential / pathologies of concern include dental pain, early dental infection. Diagnostic studies of: - None. Interventions of: - 1 g p.o. Tylenol, started on Augmentin, viscous lidocaine to go, 1 oxycodone to help him sleep tonight-taken before bed. ED Course/Assessment/Plan: 39-year-old male presents after getting a filling today with dental pain, throbbing, feels like could be starting to get a dental infection, counseled him that we can start him on Augmentin and that he needs to follow-up with his dentist by calling tomorrow, he was given some simple pain control medications and counseled on homeopathic's, strict return criteria for any trismus or vocal changes or fever. Findings not consistent with gingival abscess, deep space infection. Disposition of pain, dental. Patient verbalized understanding of the plan and return to ED criteria and engaged in shared decision making. Medical Records Medical records reviewed: Yes I reviewed the patient's medical records. PFSH All Active Problems (Updated 12/11/24 @ 21:26 by SAUL Lucero) Pain, dental (Acute) Asthma (Chronic) Healthcare maintenance (Acute) Tendinitis of right shoulder (Acute) Olecranon bursitis, right elbow (Acute) Atopic eczema (Acute) Dyspnea (Acute) Medical History (Updated 12/11/24 @ 21:26 by SAUL Lucero) History of alcoholism Social History (Updated 06/14/22 @ 11:26 by Salome Bruno) Smoking/Tobacco Use Status: Current-Occasional Tobacco Type: cigars Smoking risk assessment performed?: Yes Alcohol Intake: former Drug use: Never Substance use type: does not use Do you feel safe at home: Yes Do you feel safe in your relationship?: Yes Additional Social history: Pt previously smoked 1pkg a day starting at age 14 and quit in 2009. Now smokes occasional 3 cigars a week.
[2024-12-11] MEDS: oxyCODONE 5 MG TAB PO (21:36)
[2024-12-11] MEDS: Lidocaine 2% Viscous 15 ML CUP (21:36)
[2024-12-11] MEDS: Acetaminophen 500 MG TAB 1000 MG PO (21:36)
[2024-12-11] MEDS: Amoxicillin 875/Clav. 125 TAB PO (21:36)
== END 2024-12-11 21:41 | disposition home or self-care (01) ==
PROVIDERS: Emergency Provider Physician Assistant; PCP Family Medicine
DX: K08.89 Other specified disorders of teeth and supporting structures (principal)
CPT/HCPCS: 99283 ×2